=== PATIENT | female | born 1990 | race Caucasian/White ===

== ENCOUNTER 2018-05-19 08:00 | Outpatient (CLI) | payer BC ==
[2018-05-19 10:24] LABS: BILIRUBIN,URINE NEGATIVE (NEGATIVE); GLUCOSE, URINE (UA) NEGATIVE (NEGATIVE); KETONES,URINE (UA) NEGATIVE (NEGATIVE); LEUKOCYTE ESTERASE, URINE NEGATIVE (NEGATIVE); NITRITE,URINE NEGATIVE (NEGATIVE); OCCULT BLOOD,URINE NEGATIVE (NEGATIVE); PROTEIN,URINE NEGATIVE (NEGATIVE); UROBILINOGEN,URINE 0.2 (NORMAL) E.U./dL (NORMAL)
[2018-05-19 10:51] LABS: CLARITY,URINE CLEAR (CLEAR)
[2018-05-19 10:53] LABS: BACTERIA,URINE None Seen /HPF (None Seen); RBC,URINE None Seen /HPF (0-5); SQUAMOUS EPITHELIAL CELL,UR RARE Squamous (<= Few)
== END 2018-05-19 08:01 | disposition home or self-care (01) ==
LOC: LAB.R 08:00
PROVIDERS: ATTEND Physician Assistant Medical
DX: R30.0 Dysuria (principal)
CPT/HCPCS: 81001

== ENCOUNTER 2018-08-09 17:21 | Outpatient (CLI) | payer BC ==
[2018-08-09 17:39] LABS: BASOPHILS # (AUTO) 0.1 10^3/uL (0.0-0.1); EOSINOPHILS # (AUTO) 0.1 10^3/uL (0.0-0.7); EOSINOPHILS % (AUTO) 1.1 %; HGB - HEMOGLOBIN 14.1 g/dL (12.0-16.0); LYMPHOCYTES # (AUTO) 2.1 10^3/uL (1.5-3.5); LYMPHOCYTES % (AUTO) 23.5 %; MEAN CORPUSCULAR HEMOGLOBIN 31.1 pg (27.0-31.0); MEAN CORPUSCULAR HGB CONC 34.3 g/dL (32.0-36.0); MEAN CORPUSCULAR VOLUME 90.6 fL (81.0-99.0); MONOCYTES # (AUTO) 0.5 10^3/uL (0.0-1.0); MONOCYTES % (AUTO) 5.6 %; NEUTROPHILS # (AUTO) 6.1 10^3/uL (1.5-6.6); NEUTROPHILS % (AUTO) 68.8 %; PLT - PLATELET COUNT 204 10^3/uL (130-450); RED BLOOD COUNT 4.55 10^6/uL (4.20-5.40); RED CELL DISTRIBUTION WIDTH 11.4 % (12.0-15.0); WHITE BLOOD COUNT 8.9 x10^3/uL (4.8-10.8)
[2018-08-09 17:50] LABS: ALBUMIN 4.3 g/dL (3.2-5.5); ALBUMIN/GLOBULIN RATIO 1.3 (1.0-2.2); BILIRUBIN,TOTAL 0.5 mg/dL (0.2-1.0); CREATININE 0.7 mg/dL (0.4-1.0); TOTAL PROTEIN 7.6 g/dL (6.7-8.2)
== END 2018-08-09 17:22 | disposition home or self-care (01) ==
LOC: LAB 17:21
PROVIDERS: ATTEND Family Medicine
DX: R10.31 Right lower quadrant pain (principal)
CPT/HCPCS: 36415; 80053; 85025

== ENCOUNTER 2018-08-10 | Outpatient (CLI) | payer BC ==
--- NOTE | 2018-08-10 01:45 | Ultrasound Report ---
Reason: RIGHT LOWER QUADRANT ABDOMINAL PAIN Procedure Date: 08/10/2018 Accession Number: [id number] / [id number] Procedure: US - Abdomen Limited CPT Code: FULL RESULT: EXAM: Limited ABDOMEN ultrasound EXAM DATE: 08/10/2018 12:13 AM. CLINICAL HISTORY: RIGHT LOWER QUADRANT ABDOMINAL PAIN. COMPARISON: PELVIC W/TRANSVAGINAL 08/10/2018 12:33 AM. TECHNIQUE: Real-time scanning was performed of the right lower quadrant with static images obtained. FINDINGS: APPENDIX: The appendix is not visualized. COMPRESSION TOLERATED: Marked ASSOCIATED FINDINGS: Lymph Nodes Seen: No Free Fluid/Complex Fluid Seen: No Thickened Bowel Wall Seen: No Other: Please also refer to pelvic ultrasound of the same day. IMPRESSION: Nonvisualization of the appendix, but no secondary findings of acute appendicitis. RADIA
--- NOTE | 2018-08-10 02:03 | Ultrasound Report ---
Reason: RIGHT LOWER QUADRANT ABDOMINAL PAIN Procedure Date: 08/10/2018 Accession Number: [id number] / [id number] Procedure: US - Pelvic w/Transvaginal CPT Code: FULL RESULT: EXAM: PELVIC ULTRASOUND EXAM DATE: 08/10/2018 12:33 AM. CLINICAL HISTORY: RIGHT LOWER QUADRANT ABDOMINAL PAIN. COMPARISON: None. TECHNIQUE: Realtime transabdominal pelvic scan performed to identify the uterus and adnexa and as an overview of other pelvic structures, followed by transvaginal scan to provide greater detail of the uterus and adnexa, with static image documentation. FINDINGS: Uterus: 8.0 x 5.6 x 4.1 cm, volume 97 cc. Anteverted position. Normal overall size and echotexture. Masses: None. Endometrium: 6 mm. Normal. Cervix: Unremarkable. Right Ovary: 3.7 x 3.0 x 2.1 cm, volume 12 cc. Hemorrhagic 2.1 x 1.6 x 1.4 cm cyst. Left Ovary: 2.9 x 2.7 x 2.6 cm, volume 11 cc. Normal echotexture and blood flow. Free Fluid: None. Other: None. IMPRESSION: 2.1 cm hemorrhagic right ovarian cyst. RADIA
== END 2018-08-10 00:01 | disposition home or self-care (01) ==
LOC: DI
PROVIDERS: ATTEND Family Medicine
DX: R10.31 Right lower quadrant pain (principal); N83.201 Unspecified ovarian cyst, right side
CPT/HCPCS: 76705; 76830; 76856

== ENCOUNTER 2019-09-03 17:24 | Outpatient (CLI) | payer OTHER ==
--- NOTE | 2019-09-04 14:39 | XRAY Report ---
Reason: COUGH AND CHEST PAIN Procedure Date: 09/03/2019 Accession Number: [id number] / [id number] Procedure: XR - Chest 2 View X-Ray CPT Code: 86415 Final Report FULL RESULT: EXAM: CHEST RADIOGRAPHY EXAM DATE: 09/03/2019 05:46 PM. CLINICAL HISTORY: COUGH AND CHEST PAIN. COMPARISON: None. TECHNIQUE: 2 views. FINDINGS: Lungs/Pleura: No dense consolidation. No large effusion or pneumothorax. No pulmonary edema. Mediastinum: Heart and mediastinal contours are unremarkable. Other: None. IMPRESSION: No acute radiographic pulmonary abnormalities. RADIA
== END 2019-09-03 17:25 | disposition home or self-care (01) ==
LOC: DI 17:24
PROVIDERS: ATTEND Physician Assistant Medical
DX: R05 Cough (principal); R07.9 Chest pain, unspecified; T65.94XA Toxic effect of unspecified substance, undetermined, initial encounter
CPT/HCPCS: 71046

== ENCOUNTER 2021-04-14 08:00 | Outpatient (CLI) | payer OTHER ==
[2021-04-14 19:52] LABS: BASOPHILS % (AUTO) 0.7 %; HCT - HEMATOCRIT 39.9 % (37.0-47.0); HGB - HEMOGLOBIN 13.2 g/dL (12.0-16.0); LYMPHOCYTES % (AUTO) 22.7 %; MEAN CORPUSCULAR HEMOGLOBIN 30.3 pg (27.0-31.0); MEAN CORPUSCULAR HGB CONC 33.1 g/dL (32.0-36.0); MEAN CORPUSCULAR VOLUME 91.5 fL (81.0-99.0); MEAN PLATELET VOLUME 11.6 fL (7.9-10.8); MONOCYTES % (AUTO) 4.6 %; NEUTROPHILS % (AUTO) 57.8 %; PLT - PLATELET COUNT 207 10^3/uL (130-450); RED BLOOD COUNT 4.36 10^6/uL (4.20-5.40); RED CELL DISTRIBUTION WIDTH 11.5 % (12.0-15.0)
[2021-04-14 20:01] LABS: ABNORMAL LYMPHS % (MANUAL) 0 %; BAND NEUTROPHILS % (MANUAL) 0 %
[2021-04-14 20:07] LABS: ALBUMIN 3.8 g/dL (3.2-5.5); ALBUMIN/GLOBULIN RATIO 1.2 (1.0-2.2); BILIRUBIN,TOTAL 0.7 mg/dL (0.2-1.0); CREATININE 0.7 mg/dL (0.4-1.0); POTASSIUM 3.5 mmol/L (3.5-5.0)
[2021-04-14 20:26] LABS: THYROID STIMULATING HORMONE 1.61 uIU/mL (0.34-5.60)
[2021-04-14 20:29] LABS: DIFFERENTIAL COMMENT MANUAL DIFFERENTIAL; EOSINOPHILS # (MANUAL) 0.1 10^3/uL (0-0.7); LYMPHOCYTES # (MANUAL) 1.3 10^3/uL (1.5-3.5); LYMPHOCYTES % (MANUAL) 14 %; MONOCYTES # (MANUAL) 0.6 10^3/uL (0.0-1.0); PLATELET ESTIMATE, MANUAL NORMAL (130-450,000) (NORMAL); PLATELET MORPHOLOGY NORMAL APPEARANCE (NORMAL); RBC MORPHOLOGY (MULTIPLE) NORMAL APPEARANCE (NORMAL)
== END 2021-04-14 23:59 | disposition home or self-care (01) ==
LOC: LAB.S 08:00
PROVIDERS: ATTEND Emergency Medicine
DX: R00.2 Palpitations (principal)
CPT/HCPCS: 36415; 80053; 83735; 84443; 85025

== ENCOUNTER 2022-02-19 21:10 | Emergency (ER) | payer OTHER ==
[2022-02-19] MEDS ORDERED: KETOROLAC 15 MG/ML VIAL IVP STA (21:35)
[2022-02-19] MEDS ORDERED: ONDANSETRON 4 MG/2 ML VIAL IVP STA (21:35)
--- NOTE | 2022-02-19 21:35 | ED Physician Documentation ---
PD HPI ABD PAIN - Stated complaint Stated Complaint: ABD PX/NAUSEA - Chief complaint Chief Complaint: Abd Pain - History obtained from History obtained from: Patient - History of Present Illness Timing - onset: How many days ago (2) - Additional information Additional information: 31-year-old female with no significant past medical history presents with 2 days of intermittent, gradually worsening, cramping right-sided abdominal pain with nausea. Patient states that pain began gradually yesterday, she thought that it was a stomach bug, however it continued to worsen. Today the pain was even worse and associated with bright yellow urine, so she decided to present for evaluation. Patient states that the pain and the nausea make her hesitant to eat. Shortly after the last time she ate her right upper quadrant pain intensified and became much worse. Patient denies fevers, chills, vomiting, constipation, diarrhea. Denies surgical history. Reports only occasional alcohol use, none in the last week. Review of Systems Ten Systems: 10 systems reviewed and negative Constitutional: denies: Fever, Chills, Myalgias Cardiac: denies: Chest pain / pressure, Palpitations GI: reports: Abdominal Pain, Nausea. denies: Abdominal Swelling, Vomiting : reports: Other (yellow urine). denies: Dysuria, Frequency Skin: denies: Rash, Lesions PD PAST MEDICAL HISTORY - Past Medical History Past Medical History: No - Present Medications Home Medications: Ambulatory Orders Medication Instructions Recorded Confirmed Norelgestromin/Ethin.estradiol 02/19/22 [Xulane 150-35 Mcg/Day Patch] - Allergies Allergies/Adverse Reactions: Allergies Allergy/AdvReac Type Severity Reaction Status Date / Time No Known Drug Allergies Allergy Verified 02/19/22 21:25 PD ED PE NORMAL - Vitals Vital signs reviewed: Yes - General General: Alert and oriented X 3, No acute distress, Well developed/nourished - HEENT HEENT: Atraumatic, PERRL, EOMI, Other (mild scleral icterus) - Neck Neck: Supple, no meningeal sign, No bony TTP, C-Spine cleared by NEXUS criteria - Cardiac Cardiac: RRR, No murmur, Strong equal pulses - Respiratory Respiratory: No respiratory distress, Clear bilaterally - Abdomen Abdomen: Soft, Non distended, No organomegaly, Other (RUQ TTP, negative abel's sign) - Back Back: No CVA TTP, No spinal TTP - Derm Derm: Normal color, Warm and dry, No rash - Extremities Extremities: No deformity, No tenderness to palpate, Normal ROM s pain, No edema - Neuro Neuro: Alert and oriented X 3, 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, No motor deficit, No sensory deficit, Normal speech - Psych Psych: Normal mood, Normal affect Results - Vitals Vitals: Vital Signs - 24 hr 02/19/22 02/19/22 02/20/22 21:21 23:21 02:09 Temperature 36.2 C L 36.5 C 36.5 C Heart Rate 92 90 79 Respiratory 16 16 16 Rate Blood Pressure 138/93 H 133/81 H 111/91 H O2 Saturation 98 98 99 02/20/22 02/20/22 02/20/22 03:50 04:20 04:42 Temperature 36.2 C L Heart Rate 77 77 76 Respiratory 16 16 16 Rate Blood Pressure 120/84 H 121/77 125/89 H O2 Saturation 98 98 97 02/20/22 02/20/22 05:44 06:31 Temperature 36.8 C Heart Rate 66 87 Respiratory 14 18 Rate Blood Pressure 121/74 117/75 O2 Saturation 97 100 Oxygen O2 Source Room air - Labs Labs: Laboratory Tests 02/19/22 02/19/22 02/19/22 21:36 21:36 23:41 WBC 11.6 H RBC 4.99 Hgb 15.1 Hct 44.4 MCV 89.0 MCH 30.3 MCHC 34.0 RDW 11.9 L Plt Count 237 MPV 10.8 Neut # (Auto) 9.3 H Lymph # (Auto) 1.6 [place] # (Auto) 0.6 Eos # (Auto) 0.1 Baso # (Auto) 0.1 Absolute Nucleated RBC 0.00 Nucleated RBC % 0.0 Sodium 140 Potassium 3.4 L Chloride 103 Carbon Dioxide 25 Anion Gap 12.0 BUN 8 Creatinine 0.6 Estimated GFR (MDRD) 115 Glucose 96 Calcium 9.2 Total Bilirubin 5.8 H AST 191 H ALT 292 H Alkaline Phosphatase 206 H Total Protein 8.0 Albumin 4.0 Globulin 4.0 Albumin/Globulin Ratio 1.0 Lipase 27 Urine Color DARK YELLOW Urine Clarity CLEAR Urine pH 6.0 Ur Specific [place] <=1.005 Urine Protein NEGATIVE Urine Glucose (UA) NEGATIVE Urine Ketones TRACE Urine Occult Blood TRACE-INTA Urine Nitrite NEGATIVE Urine Bilirubin MODERATE H Urine Urobilinogen 0.2 (NORMAL) Ur Leukocyte Esterase NEGATIVE Ur Microscopic Review NOT INDICATED Urine Culture Comments NOT INDICATED Urine HCG, Qual SARS-CoV-2 (PCR) 02/19/22 02/20/22 02/20/22 23:41 00:09 06:26 WBC 9.0 RBC 4.57 Hgb 13.9 Hct 40.5 MCV 88.6 MCH 30.4 MCHC 34.3 RDW 11.9 L Plt Count 207 MPV 10.8 Neut # (Auto) 6.9 H Lymph # (Auto) 1.4 L [place] # (Auto) 0.6 Eos # (Auto) 0.1 Baso # (Auto) 0.1 Absolute Nucleated RBC 0.00 Nucleated RBC % 0.0 Sodium Potassium Chloride Carbon Dioxide Anion Gap BUN Creatinine Estimated GFR (MDRD) Glucose Calcium Total Bilirubin AST ALT Alkaline Phosphatase Total Protein Albumin Globulin Albumin/Globulin Ratio Lipase Urine Color Urine Clarity Urine pH Ur Specific [place] Urine Protein Urine Glucose (UA) Urine Ketones Urine Occult Blood Urine Nitrite Urine Bilirubin Urine Urobilinogen Ur Leukocyte Esterase Ur Microscopic Review Urine Culture Comments Urine HCG, Qual NEGATIVE SARS-CoV-2 (PCR) NOT DETECTED 02/20/22 06:26 WBC RBC Hgb Hct MCV MCH MCHC RDW Plt Count MPV Neut # (Auto) Lymph # (Auto) [place] # (Auto) Eos # (Auto) Baso # (Auto) Absolute Nucleated RBC Nucleated RBC % Sodium 135 Potassium 3.4 L Chloride 101 Carbon Dioxide 25 Anion Gap 9.0 BUN 7 Creatinine 0.7 Estimated GFR (MDRD) 96 Glucose 86 Calcium 8.4 L Total Bilirubin 5.3 H AST 163 H ALT 272 H Alkaline Phosphatase 200 H Total Protein 6.9 Albumin 3.7 Globulin 3.2 Albumin/Globulin Ratio 1.2 Lipase Urine Color Urine Clarity Urine pH Ur Specific [place] Urine Protein Urine Glucose (UA) Urine Ketones Urine Occult Blood Urine Nitrite Urine Bilirubin Urine Urobilinogen Ur Leukocyte Esterase Ur Microscopic Review Urine Culture Comments Urine HCG, Qual SARS-CoV-2 (PCR) PD MEDICAL DECISION MAKING - ED course Complexity details: reviewed results, re-evaluated patient, considered differential, d/w patient, d/w benefits consultant ED course: Patient presenting for right upper quadrant pain with nausea. Ultrasound shows biliary dilation but no observed stone. Labs are significant for elevated T bili and elevated liver enzymes. arrived at bedside, he states that he has noticed that the patient's eyes are yellow and they are normally not yellow. Abnormal ultrasound and liver enzymes are concerning for biliary obstruction. We do not currently have GI or general surgery services at her facility. Patient consented to transfer. While transfer is pending we will empirically cover patient with Rocephin and Flagyl. No obvious evidence of cholecystitis, however white blood cell count is upper limits of normal with some left shift. Attempting to transfer patient throughout the night, numerous facilities are on divert or close to transfer patient is on the wait list at several facilities. Repeat laboratory work shows stable liver enzymes. Updated oncoming provider of patient's status and intent to transfer. Patient is hemodynamically stable at this time Departure - Departure Disposition: 02 Transfer Acute Care Hosp Clinical Impression: Biliary obstruction, Jaundice
[2022-02-19 21:40] LABS: BASOPHILS # (AUTO) 0.1 10^3/uL (0.0-0.1); BASOPHILS % (AUTO) 0.6 %; EOSINOPHILS # (AUTO) 0.1 10^3/uL (0.0-0.7); EOSINOPHILS % (AUTO) 0.8 %; HCT - HEMATOCRIT 44.4 % (37.0-47.0); HGB - HEMOGLOBIN 15.1 g/dL (12.0-16.0); LYMPHOCYTES # (AUTO) 1.6 10^3/uL (1.5-3.5); LYMPHOCYTES % (AUTO) 13.4 %; MEAN CORPUSCULAR HEMOGLOBIN 30.3 pg (27.0-31.0); MEAN PLATELET VOLUME 10.8 fL (7.9-10.8); MONOCYTES # (AUTO) 0.6 10^3/uL (0.0-1.0); MONOCYTES % (AUTO) 4.8 %; NEUTROPHILS # (AUTO) 9.3 10^3/uL (1.5-6.6); NEUTROPHILS % (AUTO) 80.1 %; PLT - PLATELET COUNT 237 10^3/uL (130-450); RED BLOOD COUNT 4.99 10^6/uL (4.20-5.40); RED CELL DISTRIBUTION WIDTH 11.9 % (12.0-15.0); WHITE BLOOD COUNT 11.6 x10^3/uL (4.8-10.8)
[2022-02-19 21:56] LABS: BILIRUBIN,TOTAL 5.8 mg/dL (0.2-1.0); CALCIUM 9.2 mg/dL (8.5-10.3); CREATININE 0.6 mg/dL (0.4-1.0); POTASSIUM 3.4 mmol/L (3.5-5.0)
--- NOTE | 2022-02-19 22:52 | Ultrasound Report ---
PROCEDURE: Abdomen Limited INDICATIONS: RUQ PAIN EVAL ESTEPHANIA TECHNIQUE: Real-time focused scanning was performed of the abdomen, with image documentation. COMPARISON: Abdominal ultrasound 08/10/2018 FINDINGS: Normal size of the liver. Increased hepatic parenchymal echogenicity and echotexture. No f ocal hepatic mass. There is mild intrahepatic biliary ductal dilatation. The common duct measures 8 m m at the júnior hepatis. Multiple gallstones identified. No gallbladder wall thickening or pericholecy stic fluid. The core stacker reports a negative sonographic Morales sign. Visualized portions of the pa ncreas are normal. Right kidney unremarkable. IMPRESSION: Cholelithiasis without findings of cholecystitis. Dilated common duct with mild intrahepatic biliary ductal dilatation. Correlate for biliary tract obs truction. Reviewed by: Herve Overton MD on 02/19/2022 10:51 PM PDT Approved by: Herve Overton MD on 02/19/2022 10:51 PM PDT Station ID: [id number]
[2022-02-19 23:50] LABS: GLUCOSE, URINE (UA) NEGATIVE (NEGATIVE); KETONES,URINE (UA) TRACE mg/dL (NEGATIVE); LEUKOCYTE ESTERASE, URINE NEGATIVE (NEGATIVE); NITRITE,URINE NEGATIVE (NEGATIVE); OCCULT BLOOD,URINE TRACE-INTA (NEGATIVE); PROTEIN,URINE NEGATIVE (NEGATIVE); UROBILINOGEN,URINE 0.2 (NORMAL) E.U./dL (NORMAL)
[2022-02-19 23:53] LABS: BILIRUBIN,URINE MODERATE (NEGATIVE); CLARITY,URINE CLEAR (CLEAR); ICTOTEST,URINE POSITIVE
[2022-02-20] MEDS ORDERED: cefTRIAXone 1 GM in SODIUM CHLORIDE 0.9% MINIBAG 100 ML IV STA (00:19)
[2022-02-20] MEDS ORDERED: metroNIDAZOLE 500 MG/100 ML 500 MG/100 ML BAG IV SCH (01:00)
[2022-02-20 01:21] LABS: HCG UR QUAL NEGATIVE
[2022-02-20] MEDS ORDERED: cefTRIAXone 1 GM VIAL ONE (02:08)
[2022-02-20] MEDS ORDERED: ONDANSETRON 4 MG/2 ML VIAL IVP STA (03:50)
[2022-02-20] MEDS ORDERED: MORPHINE 2 MG/ML CARPUJECT IVP STA (04:25)
[2022-02-20 06:31] LABS: BASOPHILS # (AUTO) 0.1 10^3/uL (0.0-0.1); BASOPHILS % (AUTO) 0.6 %; EOSINOPHILS # (AUTO) 0.1 10^3/uL (0.0-0.7); HCT - HEMATOCRIT 40.5 % (37.0-47.0); HGB - HEMOGLOBIN 13.9 g/dL (12.0-16.0); LYMPHOCYTES # (AUTO) 1.4 10^3/uL (1.5-3.5); LYMPHOCYTES % (AUTO) 15.1 %; MEAN CORPUSCULAR HEMOGLOBIN 30.4 pg (27.0-31.0); MEAN CORPUSCULAR HGB CONC 34.3 g/dL (32.0-36.0); MEAN CORPUSCULAR VOLUME 88.6 fL (81.0-99.0); MEAN PLATELET VOLUME 10.8 fL (7.9-10.8); MONOCYTES # (AUTO) 0.6 10^3/uL (0.0-1.0); MONOCYTES % (AUTO) 6.3 %; NEUTROPHILS # (AUTO) 6.9 10^3/uL (1.5-6.6); NEUTROPHILS % (AUTO) 76.7 %; PLT - PLATELET COUNT 207 10^3/uL (130-450); RED BLOOD COUNT 4.57 10^6/uL (4.20-5.40); RED CELL DISTRIBUTION WIDTH 11.9 % (12.0-15.0)
[2022-02-20 06:43] LABS: ALBUMIN 3.7 g/dL (3.2-5.5); ALBUMIN/GLOBULIN RATIO 1.2 (1.0-2.2); BILIRUBIN,TOTAL 5.3 mg/dL (0.2-1.0); CALCIUM 8.4 mg/dL (8.5-10.3); CREATININE 0.7 mg/dL (0.4-1.0); POTASSIUM 3.4 mmol/L (3.5-5.0); TOTAL PROTEIN 6.9 g/dL (6.7-8.2)
--- NOTE | 2022-02-20 07:30 | CT Report ---
PROCEDURE: Abdomen/Pelvis W INDICATIONS: RUQ PAIN, BILIARY OBSTRUCTION CONTRAST: IV CONTRAST: Optiray 320 ml: 100 PO CONTRAST: *NO PO CONTRAST TECHNIQUE: After the administration of intravenous contrast, 5 mm thick sections acquired from the diaphragms to the symphysis. 5 mm thick coronal and sagittal reformats were acquired. For radiation dose reducti on, the following was used: automated exposure control, adjustment of mA and/or kV according to ivy ent size. COMPARISON: 02/19/2022 ultrasound FINDINGS: Image quality: Excellent. ABDOMEN: Lung bases: Lung bases are clear. Heart size is normal. Mild atelectasis Solid organs: Liver and spleen are normal in size and enhancement. Subcentimeter liver lesions are t oo small to characterize. Cholelithiasis and mildly distended. Mildly dilated biliary system. CBD measures 9 to 10 mm. Pancreas, spleen, adrenals are unremarkable. Kidneys within normal limits. N o hydronephrosis. Peritoneum and bowel: Bowel loops demonstrate normal wall thickness and caliber. No free fluid or a ir. Colonic diverticula. Nodes and vessels: No retroperitoneal or mesenteric adenopathy by size criteria. Aorta and inferior vena cava are normal in size. Miscellaneous: Small fat-containing umbilical hernia. PELVIS: Genitourinary: Bladder wall thickness is normal. Miscellaneous: No inguinal hernias or adenopathy. Bones: No suspicious bony lesions. No vertebral body compression fractures. IMPRESSION: Cholelithiasis and dilated CBD, possibly due to choledocholithiasis or recently passed stone. Correla te with liver function testing. MRCP or ERCP are options for further evaluation. Other incidental findings above. Agree with preliminary report. Reviewed by: Lebron Nguyen MD on 02/20/2022 7:29 AM PDT Approved by: Lebron Nguyen MD on 02/20/2022 7:29 AM PDT Station ID: [id number]
--- NOTE | 2022-02-20 09:27 | ED Physician Documentation ---
ED Addendum - Addendum Addendum: 02/20/22 09:25The patient remained stable with minimal pain this morning. Repeat blood test showed a slightly decreased/improving LFTs. CT and ultrasound have been concerning for ductal dilatation without obvious stone identified. Multiple gallstones in the gallbladder however. No signs of cholecystitis. Consideration would be for persistent ductal obstruction versus a passed stone. Unfortunately we are unable to do MRCP for at least 2 more days and as such given the acute nature of this, we are looking for other hospitals. system coordinator did call back and I spoke with Dr. Brenden Shetty at the [facility] who is excepting of the patient in transfer. He is the hospitalist. Most likely course will be to obtain an MRCP and if the duct is patent then discharge. Otherwise intervention with GI. At this point we are awaiting bed assignment from the [facility] in which point we will initiate transfer. Disposition: The patient is transferred to acute [facility] in stable condition. Diagnoses: 1. Upper abdominal pain, acute 2. Elevated liver enzymes 3. Dilated common bile duct
[2022-02-20] MEDS ORDERED: HYDROmorphone 1 MG/ML CARPUJECT IVP STA (11:03)
[2022-02-20 11:11] VITALS: BP 120/81
== END 2022-02-20 11:24 | disposition short-term general hospital (02) ==
LOC: ED 21:10
DX: K83.1 Obstruction of bile duct (principal); R17 Unspecified jaundice
CPT/HCPCS: 36415; 74177; 76705; 80053; 81003; 81025; 83690; 85025; 87635; 96365; 96368; 96375; 96376; 99285; J1170; Q9967; 81001; 87086

== ENCOUNTER 2022-05-22 12:52 | Outpatient (CLI) | payer OTHER ==
[2022-05-22] MEDS ORDERED: iohexoL-300 100 ML VIAL ONE (12:56)
[2022-05-22] MEDS ORDERED: DIATRIZOATE MEGLU/DIATRIZO SOD 30 ML BOTTLE PO ONE ×2 (12:56→14:32)
[2022-05-22] MEDS ORDERED: iohexoL-300 100 ML VIAL IVP ONE (14:31)
--- NOTE | 2022-05-22 16:03 | CT Report ---
PROCEDURE: ABDOMEN W INDICATIONS: LIVER LESION CONTRAST: 100ml omni 300 TECHNIQUE: After the administration of oral and intravenous contrast, 5 mm thick sections acquired from the diap hragms to the iliac crests. 5 mm thick coronal and sagittal reformats were acquired. For radiation dose reduction, the following was used: automated exposure control, adjustment of mA and/or kV accor ding to patient size. COMPARISON: CT abdomen pelvis 02/20/2022. Abdominal ultrasound 02/19/2022. FINDINGS: Image quality: Excellent. Lung bases: Bibasilar atelectasis. No pleural effusion. Heart size is normal. Solid organs: Liver is within normal limits in size. Subtle hypodensity near the gallbladder fossa, ( 3/33). On the prior CT there was a hypodense focus in this region. No additional abnormality is ident ified. Gallbladder is absent. Biliary system is non dilated. Pancreas enhances normally. No splenom egaly. No adrenal nodules. Kidneys are normal in size, without hydronephrosis. Peritoneum and bowel: Contrast enhanced bowel loops appear normal in caliber. No free fluid or air. Nodes and vessels: No retroperitoneal or mesenteric adenopathy by size criteria. Aorta and inferior vena cava are normal in size. Bones: No suspicious bony lesions. No vertebral body compression fractures. Miscellaneous: No ventral hernias. IMPRESSION: 1. Subtle area of hypodensity near the gallbladder. This could represent focal fatty infiltration, pe rfusion abnormality from small hemangioma. Low suspicion for retraction injury or edema or malignant neoplasm. MRI liver with contrast could be considered for further evaluation. 2. Post cholecystectomy. No biliary ductal dilatation. Reviewed by: Rene Garduno MD on 05/22/2022 3:02 PM MARGARET Approved by: Rene Garduno MD on 05/22/2022 3:02 PM MARGARET Station ID: [id number]
== END 2022-05-22 12:53 | disposition home or self-care (01) ==
LOC: DI 12:52
PROVIDERS: ATTEND Physician Assistant Surgical
DX: K76.9 Liver disease, unspecified (principal); Z90.49 Acquired absence of other specified parts of digestive tract
CPT/HCPCS: 74160; Q9963; Q9967

== ENCOUNTER 2022-06-24 15:40 | Outpatient (CLI) | payer OTHER ==
[~2022-06-24 15:40] MED LIST: GADOBUTROL 7.5 MMOL/7.5 ML VIAL ONE
[2022-06-24] MEDS ORDERED: GADOBUTROL 7.5 MMOL/7.5 ML VIAL IVP ONE (17:33)
--- NOTE | 2022-06-25 10:41 | MRI Report ---
PROCEDURE: ABDOMEN W/WO INDICATIONS: LIVER LESION CONTRAST: 7.4 TECHNIQUE: Coronal ultra fast SE, axial 2D spoiled GE in- and [id number]; axial breath-hold T2 fast SE. Dynam ic axial ultra fast GE during the administration of contrast; post-contrast coronal ultra fast GE or 2D spoiled GE with fat saturation from the hepatic dome to the iliac crests. Optional diffusion weig hted imaging and ADC may be performed. COMPARISON: CT abdomen with contrast 05/22/2022. CT abdomen pelvis 02/20/2022. FINDINGS: Image quality: Excellent. Lung bases: No basal pleural effusions. Heart size is normal. Solid organs: Liver is normal in size. There is very subtle heterogeneity in segment IVb, (4/21), cor responding to the subtle hypodensity seen on prior CT. There is subtle signal dropout on the opposed phase images is and hypointense signal on the precontrast T1 images with fat saturation. No restricte d diffusion or suspicious enhancement at this site. This most likely represents focal fatty infiltrat ion. There is adjacent susceptibility artifact from cholecystectomy clips. Gallbladder is absent. B iliary system is non dilated. Pancreas is normal in morphology. No pancreatic ductal dilatation. No adrenal nodules. Both kidneys demonstrate normal size and enhancement, without hydronephrosis. Nodes and vessels: No retroperitoneal or mesenteric adenopathy by size criteria. Aorta and inferior vena cava are normal in size. Bowel and peritoneum: Unenhanced bowel loops are normal in caliber. No free fluid. Bones and soft tissues: No ventral hernias. Bone marrow is normal in overall signal. IMPRESSION: No suspicious hepatic lesion. Suspect focal fatty infiltration adjacent to the gallbladder fossa. No biliary or pancreatic ductal dilatation. Reviewed by: Rene Garduno MD on 06/25/2022 10:39 AM [facility] [place] Approved by: Rene Garduno MD on 06/25/2022 10:39 AM PST Station ID: [id number]
== END 2022-06-24 15:41 | disposition home or self-care (01) ==
LOC: DI 15:40
PROVIDERS: ATTEND Transplant Surgery
DX: K76.9 Liver disease, unspecified (principal); Z90.49 Acquired absence of other specified parts of digestive tract
CPT/HCPCS: 74183; A9585

== ENCOUNTER 2023-01-07 08:49 | Outpatient (CLI) | payer OTHER ==
--- NOTE | 2023-01-07 16:30 | XRAY Report ---
PROCEDURE: Ankle 3 View LT INDICATIONS: SPRAIN OF LEFT ANKLE TECHNIQUE: 3 views of the ankle were acquired. COMPARISON: None. FINDINGS: Bones: No fractures or dislocations. Ankle mortise is normally aligned. No suspicious bony lesions . Soft tissues: No tibiotalar joint effusion. Achilles tendon appears normal. Mild soft tissue swelli ng over the lateral malleolus. IMPRESSION: No acute bony abnormality. If clinical symptoms persist, consider a repeat exam in 7-10 days. Reviewed by: Beau Garcia MD on 01/07/2023 4:29 PM PDT Approved by: Beau Garcia MD on 01/07/2023 4:29 PM PDT Station ID: [id number]
== END 2023-01-07 08:50 | disposition home or self-care (01) ==
LOC: DI.S 08:49
PROVIDERS: ATTEND Emergency Medicine
DX: S93.412A Sprain of calcaneofibular ligament of left ankle, initial encounter (principal)

== ENCOUNTER 2023-11-04 16:09 | Outpatient (CLI) | payer OTHER ==
[2023-11-04 16:23] LABS: BASOPHILS # (AUTO) 0.1 10^3/uL (0.0-0.1); BASOPHILS % (AUTO) 0.7 %; EOSINOPHILS # (AUTO) 0.2 10^3/uL (0.0-0.7); EOSINOPHILS % (AUTO) 1.7 %; HCT - HEMATOCRIT 44.5 % (37.0-47.0); HGB - HEMOGLOBIN 14.7 g/dL (12.0-16.0); LYMPHOCYTES # (AUTO) 2.8 10^3/uL (1.5-3.5); LYMPHOCYTES % (AUTO) 27.2 %; MEAN CORPUSCULAR HEMOGLOBIN 29.4 pg (27.0-31.0); MEAN PLATELET VOLUME 10.7 fL (7.9-10.8); MONOCYTES # (AUTO) 0.5 10^3/uL (0.0-1.0); MONOCYTES % (AUTO) 4.9 %; NEUTROPHILS # (AUTO) 6.8 10^3/uL (1.5-6.6); NEUTROPHILS % (AUTO) 65.2 %; PLT - PLATELET COUNT 238 10^3/uL (130-450); RED CELL DISTRIBUTION WIDTH 11.2 % (12.0-15.0); WHITE BLOOD COUNT 10.4 x10^3/uL (4.8-10.8)
[2023-11-04 16:42] LABS: ALBUMIN 4.4 g/dL (3.2-5.5); ALBUMIN/GLOBULIN RATIO 1.4 (1.0-2.2); ALKALINE PHOSPHATASE 89 IU/L (42-121); ALT ALANINE AMINOTRANSFERASE 17 IU/L (10-60); AST ASPARTATE AMINOTRANSFERASE 14 IU/L (10-42); BILIRUBIN,TOTAL 0.4 mg/dL (0.2-1.0); BUN - BLOOD UREA NITROGEN 12 mg/dL (6-20); CALCIUM 9.7 mg/dL (8.5-10.3); CARBON DIOXIDE - CO2 27 mmol/L (21-32); CHLORIDE 102 mmol/L (101-111); CHOL/HDL RATIO 3.8 (<4.4); CHOLESTEROL 238 mg/dL; CREATININE 0.7 mg/dL (0.6-1.3); GFR - MDRD 95 (>89); GLUCOSE 81 mg/dL (74-104); HDL CHOLESTEROL 63 mg/dL; LDL CHOLESTEROL,CALCULATED 149 mg/dL; LDL/HDL RATIO 2.4 (<4.4); POTASSIUM 3.7 mmol/L (3.5-4.5); SODIUM 135 mmol/L (135-145); TOTAL PROTEIN 7.5 g/dL (6.4-8.9); TRIGLYCERIDES 130 mg/dL (48-352); VLDL CHOLESTEROL 26 mg/dL
== END 2023-11-04 16:10 | disposition home or self-care (01) ==
LOC: LAB 16:09
PROVIDERS: ATTEND Physician Assistant Medical
DX: Z13.9 Encounter for screening, unspecified (principal)
CPT/HCPCS: 36415; 80053; 80061; 83721; 85025